=== PATIENT | male | born 1945 | race Two or more races ===

== ENCOUNTER 2021-04-16 05:45 | Day surgery (SDC) | payer OTHER ==
[~2021-04-16 05:45] MED LIST: ARICEPT5 MG PO; CRESTOR10 MG PO; NORVASC10 MG PO; PROTONIX40 MG PO; ZESTRIL2.5 MG PO; ZOLOFT50 MG PO
[2021-04-16] MEDS ORDERED: CEPHALEXIN500 M1 PO (08:47)
== END 2021-04-16 11:00 | disposition home or self-care (01) ==
LOC: CIR.AMB 05:45 → EDBD 07:00 → CIR.AMB 07:00
PROVIDERS: ATTEND Otolaryngology Otology & Neurotology
DX: C44.219 Basal cell carcinoma of skin of left ear and external auricular canal (principal); Z20.822 Contact with and (suspected) exposure to COVID-19